=== PATIENT | male | born 1935 | race Caucasian/White ===

== ENCOUNTER 2017-04-28 10:31 | Inpatient (IN) | payer OTHER ==
[2017-04-28 10:54] VITALS: BMI 30.4
--- NOTE | 2017-04-28 13:05 | HP ---
CIWA Score - CIWA Score Nausea/Vomitin Muscle Tremors: 3 Anxiety: 3 Agitation: 3 Paroxysmal Sweats: 1-Minimal Palms Moist Orientation: 0-Oriented Tacttile Disturbances: 1-Very Mild Itch/Numbness Auditory Disturbances: 1-Very Mild Visual Disturbances: 0-None Headache: 2-Mild CIWA-Ar Total Score: 17 Admission ROS BHS - HPI Chief Complaint: I NEED HELP TO STOP DRINKING ALCOHOL Allergies/Adverse Reactions: Allergies Allergy/AdvReac Type Severity Reaction Status Date / Time No Known Allergies Allergy Verified 04/28/17 11:21 History of Present Illness: THIS 81 YEARS OLD MALE WITH ALCOHOL DEPENDENCE,SEEKING DETOX,LAST TREATMENT 10/05 TO 10/01/11 REHAB IDDDM ARTHRITIS OF RIGHT KNEE AMBULATION WITH CANE S/P CORONARY BY PASS SURGERY IN 2013 AND VALVE REPLACEMENT IN [facility] LONGEST PERIOD OF SOBRIETY 10 YEARS - Ebola screening Have you traveled outside of the country in the last 21 days: No Have you had contact with anyone from an Ebola affected area: No Have you been sick,other than usual withdrawal symptoms: No - Review of Systems Constitutional: Loss of Appetite, Malaise, Night Sweats, Changes in sleep, Weakness EENT: reports: Nose Congestion Respiratory: reports: No Symptoms reported Cardiac: reports: Other (S/P CORONARY ARTERY BY PASS SURGERY AT [facility] IN 2013) GI: reports: Nausea, Abdominal cramping : reports: No Symptoms Reported Musculoskeletal: reports: Muscle Pain Integumentary: reports: Dryness Neuro: reports: Headache, Tremors Endocrine: reports: No Symptoms Reported Hematology: reports: No Symptoms Reported Psychiatric: reports: No Sypmtoms Reported, Judgement Intact, Mood/Affect Appropiate, Orientated x3, Depressed Patient History - Patient Medical History Hx Asthma: No Hx Chronic Obstructive Pulmonary Disease (COPD): No Hx Cardiac Disorders: Yes (CHF,S/P CARDIAC SURGERY CORONARY BY [facility] IN 2013) Hx Hypertension: Yes (NO MED) Hx Hypercholesterolemia: Yes (NO MED) Hx Pacemaker: No HX Cerebrovascular Accident: No Hx Seizures: No Hx Diabetes: Yes (IDDM) Hx Gastrointestinal Disorders: Yes (acid reflux) Hx Liver Disease: No Hx Genitourinary Disorders: No Hx Sexually Transmitted Disorders: No Hx Renal Disease (ESRD): No Hx Thyroid Disease: No Hx Human Immunodeficiency Virus (HIV): No (LAST NEGATIVE) Hx Hepatitis C: No Hx Depression: Yes Hx Suicide Attempt: No Hx Schizophrenia: No Other Medical History: NO SUICIDAL,NO HOMICIDAL - Patient Surgical History Past Surgical History: Yes Hx Neurologic Surgery: No Hx Cataract Extraction: Yes (IN 2013) Hx Cardiac Surgery: Yes (double bypass/valve replacement in 2009) Hx Lung Surgery: No Hx Breast Surgery: No Hx Breast Biopsy: No Hx Abdominal Surgery: No Hx Appendectomy: No Hx Cholecystectomy: No Hx Genitourinary Surgery: No Hx Section: No Hx Orthopedic Surgery: No Other Surgical History: bilateral lens implant Anesthesia Reaction: No - PPD History Previous Implant?: Yes Documented Results: Negative w/proof Implanted On Prior [facility] Admission?: Yes Date: 08/31/11 Results: 0 mm PPD to be Administered?: Yes - Smoking Cessation Smoking history: Former smoker Have you smoked in the past 12 months: No Aproximately how many cigarettes per day: 0 If you are a former smoker, when did you quit?: at age 45 Hx Chewing Tobacco Use: No Initiated information on smoking cessation: No - Substance & Tx. History Hx Alcohol Use: Yes Hx Substance Use: No Substance Use Type: Alcohol Hx Substance Use Treatment: Yes (08/28/11 TO 10/01/11 REHAB) - Substances Abused Alcohol-wine/beer Route: Oral Frequency: Daily Amount used: 1/2 pint/1-6 pk. (12 oz.)16 Age of first use: 17 Date of Last Use: 04/28/17 Family Disease History - Family Disease History Family History: Denies Admission Physical Exam BHS - Vital Signs Vital Signs: Vital Signs - 24 hr 04/28/17 10:50 Temperature 97.7 F Pulse Rate 73 Respiratory 20 Rate Blood Pressure 154/92 - Physical General Appearance: Yes: Mild Distress, Tremorous, Irritable, Sweating, Anxious HEENTM: Yes: Normal ENT Inspection, RUSTAM, Pharynx Normal Respiratory: Yes: Lungs Clear, Normal Breath Sounds, No Respiratory Distress Neck: Yes: Within Normal Limits, Supple, Trachea in good position Breast: Yes: Within Normal Limits Cardiology: Yes: Within Normal Limits, Regular Rhythm, Regular Rate, S1, S2, Surgical Scar Abdominal: Yes: Within Normal Limits, Normal Bowel Sounds, Non Tender, Flat, Soft Genitourinary: Yes: Within Normal Limits Back: Yes: Muscle Spasm Musculoskeletal: Yes: Muscle Pain, Other (PAIN IN THE RIGHT KNEE) Extremities: Yes: Tremors, Other (PAIN IN THE RIGH TKNEE ARTHRITIS) Neurological: Yes: medical radiation tech II-XII NML intact, Fully Oriented, Alert, Motor Strength 5/5 Integumentary: Yes: Dry Lymphatic: Yes: Within Normal Limits - Diagnostic (1) Alcohol dependence with uncomplicated withdrawal Current Visit: Yes Status: Acute (2) IDDM (insulin dependent diabetes mellitus) Current Visit: Yes Status: Chronic (3) Arthritis of right knee Current Visit: Yes Status: Chronic (4) Use of cane as ambulatory aid Current Visit: Yes Status: Chronic (5) Depression Current Visit: Yes Status: Acute (6) CAD (coronary artery disease) of artery bypass graft Current Visit: Yes Status: Chronic Cleared for Admission [facility] - Detox or Rehab [facility] Level of Care: Medically Managed Detox Regimen/Protocol: Librium [facility] Breath Alcohol Content Breath Alcohol Content: 0 Urine Drug Screen - Results Drug Screen Negative: Yes
[2017-04-28] MEDS ORDERED: MENTHOL/PHENOL 1 EACH UD MM PRN (13:30)
[2017-04-28] MEDS ORDERED: IBUPROFEN 400 MG TABLET (FP) PO PRN (13:30)
[2017-04-28] MEDS ORDERED: MAGNESIUM HYDROX 2400MG/30ML ORAL SUSPENSION 30 ML CUP PO PRN (13:30)
[2017-04-28] MEDS ORDERED: P-EPHED 60MG/TRIPROLIDI 2.5MG TABLET PO PRN (13:30)
[2017-04-28] MEDS ORDERED: MAG HYDROX/AL HYDROX/SIMETH 30 ML UNIT-DOSE CUP PO PRN (13:30)
[2017-04-28] MEDS ORDERED: ACETAMINOPHEN 325 MG TABLET (FP) PO PRN (13:30)
[2017-04-28] MEDS ORDERED: MAGNESIUM CITRATE 300 ML BOTTLE PO PRN (13:30)
[2017-04-28] MEDS ORDERED: LOPERAMIDE HCL 2 MG CAPSULE PO PRN (13:30)
[2017-04-28] MEDS ORDERED: guaiFENesin/D-METHORPHAN HB 10 ML UNIT-DOSE CUPS PO PRN (13:30)
[2017-04-28] MEDS ORDERED: diphenhydrAMINE HCL 50 MG CAPSULE PO PRN (13:30)
[2017-04-28] MEDS ORDERED: chlordiazePOXIDE HCL 25 MG CAPSULE PO PRN (13:38)
[2017-04-28 16:51] LABS: MCH 28.5 pg (25.7-33.7); MCHC 32.6 g/dl (32.0-35.9); MEAN CELL VOLUME 87.4 fl (80-96); RDW 20.6 % (11.9-15.9)
[2017-04-28 17:04] LABS: ALBUMIN 4.1 g/dl (3.4-5.0); ANION GAP 9 (8-16); CALCIUM 9.4 mg/dL (8.5-10.1); CO2 29 mmol/L (21-32); CREATININE 1.3 mg/dL (0.7-1.3); GLUCOSE,RANDOM 188 mg/dL (74-106); SGOT/AST 18 U/L (15-37); SGPT/ALT 22 U/L (12-78)
[2017-04-28 17:06] LABS: ALK PHOS 59 U/L (45-117); BILIRUBIN,TOTAL 0.7 mg/dL (0.2-1.0); TOT PROT 7.2 g/dl (6.4-8.2); URINE APPEARANCE CLEAR; URINE BILIRUBIN NEGATIVE (NEGATIVE); URINE BLOOD NEGATIVE (NEGATIVE); URINE COLOR STRAW; URINE GLUCOSE (UA) NEGATIVE (NEGATIVE); URINE KETONE NEGATIVE (NEGATIVE); URINE LEUK ESTERASE NEGATIVE (NEGATIVE); URINE NITRITE NEGATIVE (NEGATIVE); URINE PROTEIN NEGATIVE (NEGATIVE); URINE UROBILINOGEN NEGATIVE mg/dL (0.2-1.0)
[2017-04-28] MEDS: sitaGLIPtin PHOSPHATE 50 MG TABLET PO SCH (17:25)
[2017-04-28] MEDS: chlordiazePOXIDE HCL 25 MG CAPSULE PO SCH ×2 (17:25→22:36)
[2017-04-28] MEDS: metFORMIN HCL 500 MG TABLET (FP) PO SCH (17:25)
--- NOTE | 2017-04-28 17:57 | CONSULT ---
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 Substance Abuse History: Discussed with patient in this session.Confirmed [facility] report. Smoking Cessation. Smoking history: Former smoker. Have you smoked in the past 12 months: No. Aproximately how many cigarettes per day: 0. If you are a former smoker, when did you quit?: at age 45. Hx Chewing Tobacco Use : No. Initiated information on smoking cessation: No. - Substance & Tx. History. Hx Alcohol Use: Yes. Hx Substance Use: No. Substance Use Type: Alcohol. Hx Substance Use Treatment: Yes (08/28/11 TO 10/01/11 REHAB). - Substances Abused. Alcohol-wine/beer. Route: Oral. Frequency: Daily. Amount used: 1/2 pint/1-6 pk. (12 oz.)16. Age of first use: 17. Date of Last Use: 04/28/17 Medical History: Remarkable for history of GERD,coronary artery disease (double bypass in [address] [facility]),cataract extraction (bilateral lens implant),diabetes mellitus,arthritis of right knee and congestive heart failure. Psychiatric History: Patient denies. Physical/Sexual Abuse/Trauma History: Patient denies history of abuse. Additional Comment: Drug Screen is negative. Mental Status Exam - Mental Status Exam Alert and Oriented to: Time, Place, Person Cognitive Function: Good Patient Appearance: Well Groomed Mood: Hopeful, Euthymic Affect: Normal Range Patient Behavior: Appropriate (pleasant and friendly), Cooperative Speech Pattern: Clear, Appropriate Voice Loudness: Normal Thought Process: Intact, Goal Oriented Thought Disorder: Not Present Hallucinations: Denies Suicidal Ideation: Denies Homicidal Ideation: Denies Insight/Judgement: Fair Sleep: Well Appetite: Good Muscle strength/Tone: Normal Gait/Station: Other (ambulatory ; slow gait observed ; uses a cane sometimes) Psychiatric Findings - Problem List ([place] 1, 2,3) (1) Alcohol dependence with uncomplicated withdrawal Current Visit: Yes Status: Acute (2) Arthritis of right knee Current Visit: Yes Status: Chronic (3) CAD (coronary artery disease) of artery bypass graft Current Visit: Yes Status: Chronic (4) IDDM (insulin dependent diabetes mellitus) Current Visit: Yes Status: Chronic (5) Use of cane as ambulatory aid Current Visit: Yes Status: Chronic - Initial Treatment Plan Initial Treatment Plan: Psychoeducation.Detoxification.Observation.
[2017-04-28 18:00] LABS: MEAN PLT VOLUME 8.8 fl (7.5-11.1); PLATELET COMMENT2 FEW GIANT PLTS; PLATELET COMMENT3 NO CLUMPING NOTED; PLATELET COUNT 259 K/MM3 (134-434); PLATELET ESTIMATE ADEQUATE (NORMAL)
[2017-04-28 18:01] LABS: ANISOCYTOSIS 2+; MACROCYTOSIS 1+; OVALOCYTE 1+; POIKILOCYTOSIS 1+; POLYCHROMASIA 1+
--- NOTE | 2017-04-28 20:32 | EKG ---
Test Reason : Blood Pressure : / mmHG Vent. Rate : 062 BPM Atrial Rate : 062 BPM P-R Int : 270 ms QRS Dur : 174 ms QT Int : 532 ms P-R-T Axes : 024 -12 125 degrees QTc Int : 539 ms SINUS RHYTHM WITH 1ST DEGREE A-V BLOCK LEFT BUNDLE BRANCH BLOCK ABNORMAL ECG NO PREVIOUS ECGS AVAILABLE REPEAT EKG IF CLINICALLY INDICATED Confirmed by GWENDOLYN STORY MD ([id number]) on 04/28/2017 8:31:35 PM Referred By: Confirmed By:GWENDOLYN STORY MD
[2017-04-28] MEDS ORDERED: INSULIN DETEMIR 100 UNITS/ML MDV SQ SCH (22:00)
[2017-04-28] MEDS: THIAMINE HCL 100 MG TABLET (FP) PO SCH (22:35)
[2017-04-29] MEDS: chlordiazePOXIDE HCL 25 MG CAPSULE PO SCH ×2 (05:47→10:52)
[2017-04-29] MEDS: metFORMIN HCL 500 MG TABLET (FP) PO SCH ×2 (07:39→17:41)
[2017-04-29] MEDS: sitaGLIPtin PHOSPHATE 50 MG TABLET PO SCH ×2 (07:39→17:41)
[2017-04-29] MEDS: PRENATAL VITAMINS W/ FOLIC ACID TABLET (FP) PO SCH (10:52)
--- NOTE | 2017-04-29 13:22 | PN ---
[facility] CIWA - CIWA Score Nausea/Vomitin-No Nausea/No Vomiting Muscle Tremors: 3 Anxiety: 3 Agitation: 1-Slight > Activity Paroxysmal Sweats: 3 Orientation: 2-Disoriented Date<2 days Tacttile Disturbances: 1-Very Mild Itch/Numbness Auditory Disturbances: 0-None Visual Disturbances: 3-Moderate Sensitivity Headache: 0-None Present CIWA-Ar Total Score: 16 BHS Progress Note (SOAP) Subjective: Tremors, Sweating, Constipation, Body Aches. Objective: PT. A & O X 2 (DISORIENTED ABOUT DAY / DATE). PT. OBSERVED AMBULATING ON UNIT. NO ACUTE DISTRESS. PT. DENIES CHEST PAIN. 04/29/17 13:19 Vital Signs Temperature 97.8 F 04/29/17 09:46 Pulse Rate 72 04/29/17 09:46 Respiratory Rate 18 04/29/17 09:46 Blood Pressure 130/75 04/29/17 09:46 O2 Sat by Pulse Oximetry (%) Laboratory Tests 04/28/17 04/28/17 04/28/17 11:56 14:00 14:00 WBC 8.0 D RBC 3.55 L Hgb 10.1 L D Hct 31.0 L D MCV 87.4 MCH 28.5 D MCHC 32.6 RDW 20.6 H D Plt Count 259 D MPV 8.8 Platelet Estimate Adequate Platelet Comment Few giant plts Polychromasia 1+ Poikilocytosis 1+ Anisocytosis 2+ Macrocytosis 1+ Ovalocytes 1+ Morphology Comment Sodium Potassium Chloride Carbon Dioxide Anion Gap BUN Creatinine Creat Clearance w eGFR POC Glucometer 197 Random Glucose Calcium Total Bilirubin AST ALT Alkaline Phosphatase Total Protein Albumin Urine Color Straw Urine Appearance Clear Urine pH 5.0 Ur Specific [place] <= 1.005 Urine Protein Negative Urine Glucose (UA) Negative Urine Ketones Negative Urine Blood Negative Urine Nitrite Negative Urine Bilirubin Negative Urine Urobilinogen Negative RPR Titer 04/28/17 04/28/17 04/28/17 14:00 14:00 16:32 WBC RBC Hgb Hct MCV MCH MCHC RDW Plt Count MPV Platelet Estimate Platelet Comment Polychromasia Poikilocytosis Anisocytosis Macrocytosis Ovalocytes Morphology Comment Sodium 140 Potassium 5.2 H D Chloride 102 Carbon Dioxide 29 Anion Gap 9 BUN 11 D Creatinine 1.3 D Creat Clearance w eGFR 53.12 POC Glucometer 249 Random Glucose 188 H D Calcium 9.4 Total Bilirubin 0.7 D AST 18 D ALT 22 D Alkaline Phosphatase 59 Total Protein 7.2 Albumin 4.1 Urine Color Urine Appearance Urine pH Ur Specific [place] Urine Protein Urine Glucose (UA) Urine Ketones Urine Blood Urine Nitrite Urine Bilirubin Urine Urobilinogen RPR Titer Nonreactive 04/28/17 04/29/17 21:27 05:48 WBC RBC Hgb Hct MCV MCH MCHC RDW Plt Count MPV Platelet Estimate Platelet Comment Polychromasia Poikilocytosis Anisocytosis Macrocytosis Ovalocytes Morphology Comment Sodium Potassium Chloride Carbon Dioxide Anion Gap BUN Creatinine Creat Clearance w eGFR POC Glucometer 231 93 Random Glucose Calcium Total Bilirubin AST ALT Alkaline Phosphatase Total Protein Albumin Urine Color Urine Appearance Urine pH Ur Specific [place] Urine Protein Urine Glucose (UA) Urine Ketones Urine Blood Urine Nitrite Urine Bilirubin Urine Urobilinogen RPR Titer LABS NOTED. Assessment: 04/29/17 13:20 WITHDRAWAL SYMPTOMS. Plan: CONTINUE DETOX. REPEAT K LEVEL ON 04/30/2017 FOR ELEVATED ADMISSION LEVEL. INCREASE DAILY PO FLUID INTAKE. FEOSOL, 325 MG PO BIDWM.
[2017-04-29] MEDS: INSULIN SLIDING SCALE (NOVOLOG) 1 VIAL SQ SCH ×2 (16:50→22:37)
[2017-04-29] MEDS ORDERED: chlordiazePOXIDE HCL 25 MG CAPSULE PO SCH (17:00)
[2017-04-29] MEDS: FERROUS SO4 325 MG TABLET (FP) PO SCH (17:38)
[2017-04-29] MEDS: ASPIRIN COATED 81 MG TABLET.EC PO SCH (17:38)
[2017-04-29] MEDS: chlordiazePOXIDE 5 MG CAPSULE PO SCH ×2 (17:39→22:36)
[2017-04-29] MEDS ORDERED: INSULIN (NOVOLOG) ASPART 100 UNITS/ML 10ML VIAL ONE (21:21)
[2017-04-29] MEDS ORDERED: SACUBITRIL/VALSARTAN 49 MG-51 MG TABLET PO SCH (22:00)
[2017-04-29] MEDS: CARVEDILOL 12.5 MG TABLET (FP) PO SCH (22:36)
[2017-04-29] MEDS: THIAMINE HCL 100 MG TABLET (FP) PO SCH (22:36)
[2017-04-29] MEDS: INSULIN DETEMIR 100 UNITS/ML MDV SQ SCH (22:41)
[2017-04-30] MEDS: chlordiazePOXIDE 5 MG CAPSULE PO SCH ×4 (05:54→22:35)
[2017-04-30] MEDS: INSULIN SLIDING SCALE (NOVOLOG) 1 VIAL SQ SCH ×4 (06:50→22:35)
[2017-04-30] MEDS: metFORMIN HCL 500 MG TABLET (FP) PO SCH ×2 (07:16→17:29)
[2017-04-30] MEDS: sitaGLIPtin PHOSPHATE 50 MG TABLET PO SCH ×2 (07:17→17:29)
[2017-04-30] MEDS: FERROUS SO4 325 MG TABLET (FP) PO SCH ×2 (09:26→17:29)
[2017-04-30] MEDS: FUROSEMIDE 40 MG TABLET (FP) PO SCH (09:27)
[2017-04-30] MEDS: SACUBITRIL/VALSARTAN 49 MG-51 MG TABLET PO SCH ×2 (10:20→22:35)
[2017-04-30] MEDS: AMIODARONE HCL 200 MG TABLET (FP) PO SCH (10:20)
[2017-04-30] MEDS: CARVEDILOL 12.5 MG TABLET (FP) PO SCH ×2 (10:20→22:35)
[2017-04-30] MEDS: PRENATAL VITAMINS W/ FOLIC ACID TABLET (FP) PO SCH (10:22)
[2017-04-30] MEDS: ASPIRIN COATED 81 MG TABLET.EC PO SCH (10:22)
[2017-04-30] MEDS ORDERED: INSULIN (NOVOLOG) ASPART 100 UNITS/ML 10ML VIAL ONE ×2 (11:30→16:51)
--- NOTE | 2017-04-30 14:09 | PN ---
[facility] CIWA - CIWA Score Nausea/Vomitin-No Nausea/No Vomiting Muscle Tremors: 3 Anxiety: 2 Agitation: 1-Slight > Activity Paroxysmal Sweats: 3 Orientation: 0-Oriented Tacttile Disturbances: 1-Very Mild Itch/Numbness Auditory Disturbances: 2-Mild Harshness/Frighten Visual Disturbances: 2-Mild Sensitivity Headache: 0-None Present CIWA-Ar Total Score: 14 S Progress Note (SOAP) Subjective: Sweating, Tremors, Body Aches. Objective: PT. A & O X 3, OBSERVED AMBULATING ON UNIT WITH ASSISTANCE OF A CANE. NO ACUTE DISTRESS. PT. DENIES CHEST PAIN. 04/30/17 14:06 Vital Signs Temperature 98.2 F 04/30/17 13:13 Pulse Rate 72 04/30/17 13:13 Respiratory Rate 18 04/30/17 13:13 Blood Pressure 138/73 04/30/17 13:13 O2 Sat by Pulse Oximetry (%) Laboratory Tests 04/28/17 04/28/17 04/28/17 11:56 14:00 14:00 WBC 8.0 D RBC 3.55 L Hgb 10.1 L D Hct 31.0 L D MCV 87.4 MCH 28.5 D MCHC 32.6 RDW 20.6 H D Plt Count 259 D MPV 8.8 Platelet Estimate Adequate Platelet Comment Few giant plts Polychromasia 1+ Poikilocytosis 1+ Anisocytosis 2+ Macrocytosis 1+ Ovalocytes 1+ Morphology Comment Sodium Potassium Chloride Carbon Dioxide Anion Gap BUN Creatinine Creat Clearance w eGFR POC Glucometer 197 Random Glucose Calcium Total Bilirubin AST ALT Alkaline Phosphatase Total Protein Albumin Urine Color Straw Urine Appearance Clear Urine pH 5.0 Ur Specific [place] <= 1.005 Urine Protein Negative Urine Glucose (UA) Negative Urine Ketones Negative Urine Blood Negative Urine Nitrite Negative Urine Bilirubin Negative Urine Urobilinogen Negative RPR Titer 04/28/17 04/28/17 04/28/17 14:00 14:00 16:32 WBC RBC Hgb Hct MCV MCH MCHC RDW Plt Count MPV Platelet Estimate Platelet Comment Polychromasia Poikilocytosis Anisocytosis Macrocytosis Ovalocytes Morphology Comment Sodium 140 Potassium 5.2 H D Chloride 102 Carbon Dioxide 29 Anion Gap 9 BUN 11 D Creatinine 1.3 D Creat Clearance w eGFR 53.12 POC Glucometer 249 Random Glucose 188 H D Calcium 9.4 Total Bilirubin 0.7 D AST 18 D ALT 22 D Alkaline Phosphatase 59 Total Protein 7.2 Albumin 4.1 Urine Color Urine Appearance Urine pH Ur Specific [place] Urine Protein Urine Glucose (UA) Urine Ketones Urine Blood Urine Nitrite Urine Bilirubin Urine Urobilinogen RPR Titer Nonreactive 04/28/17 04/29/17 04/29/17 21:27 05:48 16:34 WBC RBC Hgb Hct MCV MCH MCHC RDW Plt Count MPV Platelet Estimate Platelet Comment Polychromasia Poikilocytosis Anisocytosis Macrocytosis Ovalocytes Morphology Comment Sodium Potassium Chloride Carbon Dioxide Anion Gap BUN Creatinine Creat Clearance w eGFR POC Glucometer 231 93 94 Random Glucose Calcium Total Bilirubin AST ALT Alkaline Phosphatase Total Protein Albumin Urine Color Urine Appearance Urine pH Ur Specific [place] Urine Protein Urine Glucose (UA) Urine Ketones Urine Blood Urine Nitrite Urine Bilirubin Urine Urobilinogen RPR Titer 04/29/17 04/30/17 04/30/17 21:18 05:56 11:23 WBC RBC Hgb Hct MCV MCH MCHC RDW Plt Count MPV Platelet Estimate Platelet Comment Polychromasia Poikilocytosis Anisocytosis Macrocytosis Ovalocytes Morphology Comment Sodium Potassium Chloride Carbon Dioxide Anion Gap BUN Creatinine Creat Clearance w eGFR POC Glucometer 231 62 165 Random Glucose Calcium Total Bilirubin AST ALT Alkaline Phosphatase Total Protein Albumin Urine Color Urine Appearance Urine pH Ur Specific [place] Urine Protein Urine Glucose (UA) Urine Ketones Urine Blood Urine Nitrite Urine Bilirubin Urine Urobilinogen RPR Titer LABS NOTED. RESULT OF REPEAT K LEVEL PENDING. 04/30/17 14:08 Assessment: 04/30/17 14:07 WITHDRAWAL SYMPTOMS. HYPERKALEMIA (RESULT OF REPEAT K LEVEL PENDING.). HYPERTENSION. Plan: CONTINUE DETOX.
[2017-04-30] MEDS: THIAMINE HCL 100 MG TABLET (FP) PO SCH (22:34)
[2017-04-30] MEDS: INSULIN DETEMIR 100 UNITS/ML MDV SQ SCH (22:35)
[2017-05-01] MEDS: chlordiazePOXIDE 5 MG CAPSULE PO SCH ×2 (05:25→10:28)
[2017-05-01] MEDS: metFORMIN HCL 500 MG TABLET (FP) PO SCH ×2 (06:33→16:51)
[2017-05-01] MEDS: sitaGLIPtin PHOSPHATE 50 MG TABLET PO SCH ×2 (06:33→16:52)
[2017-05-01] MEDS ORDERED: INSULIN (NOVOLOG) ASPART 100 UNITS/ML 10ML VIAL ONE ×3 (06:45→21:36)
[2017-05-01] MEDS: INSULIN SLIDING SCALE (NOVOLOG) 1 VIAL SQ SCH ×4 (08:00→22:01)
[2017-05-01] MEDS: PRENATAL VITAMINS W/ FOLIC ACID TABLET (FP) PO SCH (10:28)
[2017-05-01] MEDS: ASPIRIN COATED 81 MG TABLET.EC PO SCH (10:28)
[2017-05-01] MEDS: FERROUS SO4 325 MG TABLET (FP) PO SCH ×2 (10:28→17:28)
--- NOTE | 2017-05-01 13:24 | PN ---
BHS Progress Note (SOAP) Subjective: Body Aches, Tremors. Objective: PT. A & O X 3, OBSERVED AMBULATING ON UNIT WITH ASSISTANCE OF A CANE. NO ACUTE DISTRESS. PT. DENIES CHEST PAIN. 05/01/17 13:22 Vital Signs Temperature 95.8 F L 05/01/17 10:34 Pulse Rate 70 05/01/17 10:34 Respiratory Rate 18 05/01/17 10:34 Blood Pressure 96/55 05/01/17 10:34 O2 Sat by Pulse Oximetry (%) Laboratory Tests 04/28/17 04/28/17 04/28/17 11:56 14:00 14:00 WBC 8.0 D RBC 3.55 L Hgb 10.1 L D Hct 31.0 L D MCV 87.4 MCH 28.5 D MCHC 32.6 RDW 20.6 H D Plt Count 259 D MPV 8.8 Platelet Estimate Adequate Platelet Comment Few giant plts Polychromasia 1+ Poikilocytosis 1+ Anisocytosis 2+ Macrocytosis 1+ Ovalocytes 1+ Morphology Comment Sodium Potassium Chloride Carbon Dioxide Anion Gap BUN Creatinine Creat Clearance w eGFR POC Glucometer 197 Random Glucose Calcium Total Bilirubin AST ALT Alkaline Phosphatase Total Protein Albumin Urine Color Straw Urine Appearance Clear Urine pH 5.0 Ur Specific [place] <= 1.005 Urine Protein Negative Urine Glucose (UA) Negative Urine Ketones Negative Urine Blood Negative Urine Nitrite Negative Urine Bilirubin Negative Urine Urobilinogen Negative RPR Titer 04/28/17 04/28/17 04/28/17 14:00 14:00 16:32 WBC RBC Hgb Hct MCV MCH MCHC RDW Plt Count MPV Platelet Estimate Platelet Comment Polychromasia Poikilocytosis Anisocytosis Macrocytosis Ovalocytes Morphology Comment Sodium 140 Potassium 5.2 H D Chloride 102 Carbon Dioxide 29 Anion Gap 9 BUN 11 D Creatinine 1.3 D Creat Clearance w eGFR 53.12 POC Glucometer 249 Random Glucose 188 H D Calcium 9.4 Total Bilirubin 0.7 D AST 18 D ALT 22 D Alkaline Phosphatase 59 Total Protein 7.2 Albumin 4.1 Urine Color Urine Appearance Urine pH Ur Specific [place] Urine Protein Urine Glucose (UA) Urine Ketones Urine Blood Urine Nitrite Urine Bilirubin Urine Urobilinogen RPR Titer Nonreactive 04/28/17 04/29/17 04/29/17 21:27 05:48 16:34 WBC RBC Hgb Hct MCV MCH MCHC RDW Plt Count MPV Platelet Estimate Platelet Comment Polychromasia Poikilocytosis Anisocytosis Macrocytosis Ovalocytes Morphology Comment Sodium Potassium Chloride Carbon Dioxide Anion Gap BUN Creatinine Creat Clearance w eGFR POC Glucometer 231 93 94 Random Glucose Calcium Total Bilirubin AST ALT Alkaline Phosphatase Total Protein Albumin Urine Color Urine Appearance Urine pH Ur Specific [place] Urine Protein Urine Glucose (UA) Urine Ketones Urine Blood Urine Nitrite Urine Bilirubin Urine Urobilinogen RPR Titer 04/29/17 04/30/17 04/30/17 21:18 05:56 11:23 WBC RBC Hgb Hct MCV MCH MCHC RDW Plt Count MPV Platelet Estimate Platelet Comment Polychromasia Poikilocytosis Anisocytosis Macrocytosis Ovalocytes Morphology Comment Sodium Potassium Chloride Carbon Dioxide Anion Gap BUN Creatinine Creat Clearance w eGFR POC Glucometer 231 62 165 Random Glucose Calcium Total Bilirubin AST ALT Alkaline Phosphatase Total Protein Albumin Urine Color Urine Appearance Urine pH Ur Specific [place] Urine Protein Urine Glucose (UA) Urine Ketones Urine Blood Urine Nitrite Urine Bilirubin Urine Urobilinogen RPR Titer 04/30/17 04/30/17 04/30/17 12:30 16:24 21:27 WBC RBC Hgb Hct MCV MCH MCHC RDW Plt Count MPV Platelet Estimate Platelet Comment Polychromasia Poikilocytosis Anisocytosis Macrocytosis Ovalocytes Morphology Comment Sodium Potassium 4.5 Chloride Carbon Dioxide Anion Gap BUN Creatinine Creat Clearance w eGFR POC Glucometer 268 100 Random Glucose Calcium Total Bilirubin AST ALT Alkaline Phosphatase Total Protein Albumin Urine Color Urine Appearance Urine pH Ur Specific [place] Urine Protein Urine Glucose (UA) Urine Ketones Urine Blood Urine Nitrite Urine Bilirubin Urine Urobilinogen RPR Titer 05/01/17 05/01/17 05:27 10:53 WBC RBC Hgb Hct MCV MCH MCHC RDW Plt Count MPV Platelet Estimate Platelet Comment Polychromasia Poikilocytosis Anisocytosis Macrocytosis Ovalocytes Morphology Comment Sodium Potassium Chloride Carbon Dioxide Anion Gap BUN Creatinine Creat Clearance w eGFR POC Glucometer 235 253 Random Glucose Calcium Total Bilirubin AST ALT Alkaline Phosphatase Total Protein Albumin Urine Color Urine Appearance Urine pH Ur Specific [place] Urine Protein Urine Glucose (UA) Urine Ketones Urine Blood Urine Nitrite Urine Bilirubin Urine Urobilinogen RPR Titer LABS NOTED. RESULT OF REPEAT K LEVEL NOTED (NOW IN NORMAL RANGE). 05/01/17 13:24 Assessment: 10/06/17 13:22 WITHDRAWAL SYMPTOMS. Plan: CONTINUE DETOX.
[2017-05-01] MEDS: SACUBITRIL/VALSARTAN 49 MG-51 MG TABLET PO SCH ×2 (14:00→21:58)
[2017-05-01] MEDS: AMIODARONE HCL 200 MG TABLET (FP) PO SCH (14:00)
[2017-05-01] MEDS: FUROSEMIDE 40 MG TABLET (FP) PO SCH (14:35)
[2017-05-01] MEDS: CARVEDILOL 12.5 MG TABLET (FP) PO SCH ×2 (15:32→21:57)
[2017-05-01] MEDS: chlordiazePOXIDE HCL 10 MG CAPSULE PO SCH ×2 (17:28→22:01)
[2017-05-01] MEDS: THIAMINE HCL 100 MG TABLET (FP) PO SCH (21:57)
[2017-05-01] MEDS: INSULIN DETEMIR 100 UNITS/ML MDV SQ SCH (22:01)
[2017-05-02] MEDS: chlordiazePOXIDE HCL 10 MG CAPSULE PO SCH ×2 (05:38→10:58)
[2017-05-02] MEDS: sitaGLIPtin PHOSPHATE 50 MG TABLET PO SCH (07:45)
[2017-05-02] MEDS: metFORMIN HCL 500 MG TABLET (FP) PO SCH (07:45)
[2017-05-02] MEDS: FERROUS SO4 325 MG TABLET (FP) PO SCH (07:45)
[2017-05-02] MEDS: INSULIN SLIDING SCALE (NOVOLOG) 1 VIAL SQ SCH ×2 (07:46→11:03)
[2017-05-02] MEDS: SACUBITRIL/VALSARTAN 49 MG-51 MG TABLET PO SCH (10:19)
[2017-05-02] MEDS: PRENATAL VITAMINS W/ FOLIC ACID TABLET (FP) PO SCH (10:19)
[2017-05-02] MEDS: ASPIRIN COATED 81 MG TABLET.EC PO SCH (10:19)
[2017-05-02] MEDS: AMIODARONE HCL 200 MG TABLET (FP) PO SCH (10:19)
[2017-05-02] MEDS: FUROSEMIDE 40 MG TABLET (FP) PO SCH (10:19)
[2017-05-02] MEDS: CARVEDILOL 12.5 MG TABLET (FP) PO SCH (10:19)
[2017-05-02 10:24] VITALS: BP 124/69; PULSE 64; TEMP 95.8
[2017-05-02] MEDS ORDERED: INSULIN (NOVOLOG) ASPART 100 UNITS/ML 10ML VIAL ONE (11:01)
--- NOTE | 2017-05-02 21:48 | DS ---
[facility] Detox Discharge Summary Admission Date: 04/28/17 Discharge Date: 05/02/17 - History Present History: Alcohol Dependence Additional Comments: PATIENT GOING HOME A THIS TIME; WILL PURSUE REHAB ADMISSION IN THE NEAR FUTURE. PATIENT WAS DISCHARGED FROM DETOX UNIT IN STABLE MEDICAL CONDITION. ARRANGEMENTS MADE FOR PATIENT TO BE TAKEN DIRECTLY TO HIS HOME VIA CAR SERVICE. Pertinent Past History: Arthritis of Right Knee, History of Bypass of Coronary Artery, HTN, Acid Reflux , Depression, IDDM, Use of Cane as an Ambulatory Aid. - Physical Exam Results Vital Signs: Vital Signs Temperature 95.8 F L 05/02/17 10:23 Pulse Rate 64 05/02/17 10:23 Respiratory Rate 16 05/02/17 10:23 Blood Pressure 124/69 05/02/17 10:23 O2 Sat by Pulse Oximetry (%) Pertinent Admission Physical Exam Findings: WITHDRAWAL SYMPTOMS. Laboratory Tests 04/28/17 04/28/17 04/28/17 11:56 14:00 14:00 WBC 8.0 D RBC 3.55 L Hgb 10.1 L D Hct 31.0 L D MCV 87.4 MCH 28.5 D MCHC 32.6 RDW 20.6 H D Plt Count 259 D MPV 8.8 Platelet Estimate Adequate Platelet Comment Few giant plts Polychromasia 1+ Poikilocytosis 1+ Anisocytosis 2+ Macrocytosis 1+ Ovalocytes 1+ Morphology Comment Sodium Potassium Chloride Carbon Dioxide Anion Gap BUN Creatinine Creat Clearance w eGFR POC Glucometer 197 Random Glucose Calcium Total Bilirubin AST ALT Alkaline Phosphatase Total Protein Albumin Urine Color Straw Urine Appearance Clear Urine pH 5.0 Ur Specific [place] <= 1.005 Urine Protein Negative Urine Glucose (UA) Negative Urine Ketones Negative Urine Blood Negative Urine Nitrite Negative Urine Bilirubin Negative Urine Urobilinogen Negative RPR Titer 04/28/17 04/28/17 04/28/17 14:00 14:00 16:32 WBC RBC Hgb Hct MCV MCH MCHC RDW Plt Count MPV Platelet Estimate Platelet Comment Polychromasia Poikilocytosis Anisocytosis Macrocytosis Ovalocytes Morphology Comment Sodium 140 Potassium 5.2 H D Chloride 102 Carbon Dioxide 29 Anion Gap 9 BUN 11 D Creatinine 1.3 D Creat Clearance w eGFR 53.12 POC Glucometer 249 Random Glucose 188 H D Calcium 9.4 Total Bilirubin 0.7 D AST 18 D ALT 22 D Alkaline Phosphatase 59 Total Protein 7.2 Albumin 4.1 Urine Color Urine Appearance Urine pH Ur Specific [place] Urine Protein Urine Glucose (UA) Urine Ketones Urine Blood Urine Nitrite Urine Bilirubin Urine Urobilinogen RPR Titer Nonreactive 04/28/17 04/29/17 04/29/17 21:27 05:48 16:34 WBC RBC Hgb Hct MCV MCH MCHC RDW Plt Count MPV Platelet Estimate Platelet Comment Polychromasia Poikilocytosis Anisocytosis Macrocytosis Ovalocytes Morphology Comment Sodium Potassium Chloride Carbon Dioxide Anion Gap BUN Creatinine Creat Clearance w eGFR POC Glucometer 231 93 94 Random Glucose Calcium Total Bilirubin AST ALT Alkaline Phosphatase Total Protein Albumin Urine Color Urine Appearance Urine pH Ur Specific [place] Urine Protein Urine Glucose (UA) Urine Ketones Urine Blood Urine Nitrite Urine Bilirubin Urine Urobilinogen RPR Titer 04/29/17 04/30/17 04/30/17 21:18 05:56 11:23 WBC RBC Hgb Hct MCV MCH MCHC RDW Plt Count MPV Platelet Estimate Platelet Comment Polychromasia Poikilocytosis Anisocytosis Macrocytosis Ovalocytes Morphology Comment Sodium Potassium Chloride Carbon Dioxide Anion Gap BUN Creatinine Creat Clearance w eGFR POC Glucometer 231 62 165 Random Glucose Calcium Total Bilirubin AST ALT Alkaline Phosphatase Total Protein Albumin Urine Color Urine Appearance Urine pH Ur Specific [place] Urine Protein Urine Glucose (UA) Urine Ketones Urine Blood Urine Nitrite Urine Bilirubin Urine Urobilinogen RPR Titer 04/30/17 04/30/17 04/30/17 12:30 16:24 21:27 WBC RBC Hgb Hct MCV MCH MCHC RDW Plt Count MPV Platelet Estimate Platelet Comment Polychromasia Poikilocytosis Anisocytosis Macrocytosis Ovalocytes Morphology Comment Sodium Potassium 4.5 Chloride Carbon Dioxide Anion Gap BUN Creatinine Creat Clearance w eGFR POC Glucometer 268 100 Random Glucose Calcium Total Bilirubin AST ALT Alkaline Phosphatase Total Protein Albumin Urine Color Urine Appearance Urine pH Ur Specific [place] Urine Protein Urine Glucose (UA) Urine Ketones Urine Blood Urine Nitrite Urine Bilirubin Urine Urobilinogen RPR Titer 05/01/17 05/01/17 05/01/17 05:27 10:53 16:38 WBC RBC Hgb Hct MCV MCH MCHC RDW Plt Count MPV Platelet Estimate Platelet Comment Polychromasia Poikilocytosis Anisocytosis Macrocytosis Ovalocytes Morphology Comment Sodium Potassium Chloride Carbon Dioxide Anion Gap BUN Creatinine Creat Clearance w eGFR POC Glucometer 235 253 98 Random Glucose Calcium Total Bilirubin AST ALT Alkaline Phosphatase Total Protein Albumin Urine Color Urine Appearance Urine pH Ur Specific [place] Urine Protein Urine Glucose (UA) Urine Ketones Urine Blood Urine Nitrite Urine Bilirubin Urine Urobilinogen RPR Titer 05/01/17 05/02/17 05/02/17 21:09 05:37 10:46 WBC RBC Hgb Hct MCV MCH MCHC RDW Plt Count MPV Platelet Estimate Platelet Comment Polychromasia Poikilocytosis Anisocytosis Macrocytosis Ovalocytes Morphology Comment Sodium Potassium Chloride Carbon Dioxide Anion Gap BUN Creatinine Creat Clearance w eGFR POC Glucometer 305 107 184 Random Glucose Calcium Total Bilirubin AST ALT Alkaline Phosphatase Total Protein Albumin Urine Color Urine Appearance Urine pH Ur Specific [place] Urine Protein Urine Glucose (UA) Urine Ketones Urine Blood Urine Nitrite Urine Bilirubin Urine Urobilinogen RPR Titer LABS NOTED. - Treatment Hospital Course: Detox Protocol Followed, Detoxed Safely, Responded well, Discharged Condition Good Patient has Accepted a Rehab Referral to: PT. GOING HOME AT THIS TIME; WILL PURSUE REHAB ADMISSION AT LATER DATE - Medication Discharge Medications: Ambulatory Orders Insulin (Levemir) [Levemir Flexpen -] 45 units SQ HS 04/28/17 Amiodarone HCl 200 mg PO DAILY 04/29/17 Aspirin [Aspirin EC] 81 mg PO DAILY 04/29/17 Carvedilol [Coreg -] 12.5 mg PO BID 04/29/17 Furosemide [Lasix -] 40 mg PO DAILY 04/29/17 Sacubitril/Valsartan [Entresto 49 mg-51 mg Tablet] 1 each PO BID 04/29/17 Sitagliptin Phos/Metformin HCl [Janumet 50-1,000 mg Tablet] 1 each PO BID - Diagnosis (1) Alcohol dependence with uncomplicated withdrawal Status: Acute (2) Depression Status: Acute Qualifiers: Depression Type: unspecified Qualified Code(s): F32.9 - Major depressive disorder, single episode, unspecified; F32.9 - Major depressive disorder, single episode, unspecified; F32.9 - Major depressive disorder, single episode, unspecified (3) Arthritis of right knee Status: Chronic (4) CAD (coronary artery disease) of artery bypass graft Status: Chronic Qualifiers: [place] vs. transplanted heart: unspecified whether [place] or transplanted heart Associated angina: angina presence unspecified Qualified Code(s ): I25.810 - Atherosclerosis of coronary artery bypass graft(s) without angina pectoris; I25.810 - Atherosclerosis of coronary artery bypass graft(s) without angina pectoris; I25.810 - Atherosclerosis of coronary artery bypass graft(s) without angina pectoris (5) IDDM (insulin dependent diabetes mellitus) Status: Chronic (6) Use of cane as ambulatory aid Status: Chronic - AMA Did Patient Leave Against Medical Advice: No
== END 2017-05-02 11:27 | disposition home or self-care (01) | DRG 897 ==
LOC: YASAS 10:31 → Y3N 13:03
PROVIDERS: ADMIT Internal Medicine; ATTEND Internal Medicine
PROC: HZ2ZZZZ Detoxification Services for Substance Abuse Treatment (ICD-10-PCS; principal; 2017-04-28)
DX: F10.230 Alcohol dependence with withdrawal, uncomplicated (principal); I25.810 Atherosclerosis of coronary artery bypass graft(s) without angina pectoris; F32.9 Major depressive disorder, single episode, unspecified; I10 Essential (primary) hypertension; I50.9 Heart failure, unspecified; K21.9 Gastro-esophageal reflux disease without esophagitis; E11.9 Type 2 diabetes mellitus without complications; E87.5 Hyperkalemia; M13.861 Other specified arthritis, right knee; R26.2 Difficulty in walking, not elsewhere classified; Z99.89 Dependence on other enabling machines and devices; Z87.891 Personal history of nicotine dependence; Z79.4 Long term (current) use of insulin; Z95.1 Presence of aortocoronary bypass graft; Z98.41 Cataract extraction status, right eye; Z98.42 Cataract extraction status, left eye; Z95.2 Presence of prosthetic heart valve
CPT/HCPCS: 36415; 80053; 81003; 84132; 85027; 86593; 93005; 93010